=== PATIENT | male | born 1970 | race Caucasian/White ===

== ENCOUNTER 2017-03-19 13:07 | Emergency (ER) | payer MEDICAID ==
[~2017-03-19] VITALS: Ht 167.6 cm; Wt 70.2 kg
[2017-03-19 13:09] VITALS: BP 126/85
== END 2017-03-19 14:42 | disposition home or self-care (01) ==
LOC: ED 13:54
DX: S62.666A Nondisplaced fracture of distal phalanx of right little finger, initial encounter for closed fracture (principal); W22.8XXA Striking against or struck by other objects, initial encounter; Y93.89 Activity, other specified; Y99.8 Other external cause status; Y92.89 Other specified places as the place of occurrence of the external cause
CPT/HCPCS: 29130

== ENCOUNTER 2017-05-28 17:35 | Emergency (ER) | payer MEDICAID, OTHER ==
[~2017-05-28] VITALS: Ht 167.6 cm; Wt 70.5 kg
[2017-05-28 17:43] VITALS: BP 168/90
== END 2017-05-28 19:03 | disposition home or self-care (01) ==
LOC: ED 18:50
DX: M19.012 Primary osteoarthritis, left shoulder (principal); M24.412 Recurrent dislocation, left shoulder
CPT/HCPCS: 99284

== ENCOUNTER 2020-08-03 19:33 | Inpatient (IN) | payer OTHER ==
[~2020-08-03] VITALS: Ht 167.6 cm; Wt 70.1 kg
--- NOTE | 2020-08-03 19:54 | NUR ---
PT TAKEN TO ROOM AND PLACED ON 4 L O2. PTS FADI UPDATED ON PTS STATUS AT PTS REQUEST.
[2020-08-03] MEDS ORDERED: SODIUM CHLORIDE 0.9% 1,000ML IVBOLUS ONE ×2 (20:00→22:00)
[2020-08-03] MEDS ORDERED: SODIUM CHLORIDE FLUSH 10ML SYR IVF ONE (20:00)
[2020-08-03] MEDS ORDERED: DEXAMETHASONE 4 MG/ML, 1ML IVPush ONE (20:30)
[2020-08-03 20:58] LABS: MEAN CORPUSCULAR HEMOGLOBIN 26.1 pg (27.5-34.5); MEAN CORPUSCULAR HGB CONC 32.2 g/dL (33.2-36.2); MEAN PLATELET VOLUME 9.4 fL (7.4-10.4); PLATELET COUNT 327 x10^3/uL (130-400); RED CELL DISTRIBUTION WIDTH 16.7 % (9.4-14.8)
[2020-08-03 21:02] LABS: CHLORIDE 86 mmol/L (98-107)
[2020-08-03] MEDS ORDERED: DEXAMETHASONE 4 MG/ML, 1ML ONE (21:06)
[2020-08-03] MEDS ORDERED: CEFTRIAXONE PMX 1GM/50ML 50 ML ONE (21:22)
[2020-08-03 21:24] LABS: ALANINE AMINOTRANSFERASE 4509 U/L (12-78); ALKALINE PHOSPHATASE 81 U/L (45-117); TOTAL PROTEIN 6.8 g/dL (6.4-8.2)
--- NOTE | 2020-08-03 21:25 | NUR ---
#2 BAG WO NS GOING, 2 SETS BC HAVE BEEN DRAWN STARTING ABX NOW. B/P STABLE MAP GREATER 60. WILL CONTINUE MONITOR.
[2020-08-03 21:28] LABS: MD YES
[2020-08-03] MEDS ORDERED: SODIUM CHLORIDE 0.9%, 500ML IVBOLUS ONE (21:30)
[2020-08-03] MEDS ORDERED: CEFTRIAXONE PMX 1GM/50ML 50 ML IV ONE (21:30)
[2020-08-03 21:35] LABS: ANISOCYTOSIS 1+; BAND#(MANUAL) 3.83 x10^3/uL; BANDS%(MANUAL) 27 % (0-7); LYMPH#(MANUAL) 0.71 x10^3/uL (1-3.4); LYMPHS% (MANUAL) 5 % (22-44); METAMYELOCYTES# (MANUAL) 0.14 x10^3/uL (0-0); METAMYELOCYTES% (MANUAL) 1 % (0-1); MONOS#(MANUAL) 0.85 x10^3/uL (0.3-2.7); MONOS% (MANUAL) 6 % (2-9); MYELOCYTES# (MANUAL) 0.14 x10^3/uL (0-0); MYELOCYTES% (MANUAL) 1 % (0-0); REACTIVE LYMPHS # (MANUAL) 0.28 x10^3/uL (0-0); REACTIVE LYMPHS % (MANUAL) 2 % (0-0); SEG#(MANUAL) 8.24 x10^3/uL (1.8-6.8); SEGS% (MANUAL) 58 % (42-75)
[2020-08-03 21:36] LABS: POLYCHROMASIA 1+
[2020-08-03 21:37] LABS: <PLATELET ESTIMATE> ADEQUATE; LARGE PLATELETS 1+; TOXIC GRAN 1+
[2020-08-03] MEDS: DOXYCYCLINE 100 MG in DEXTROSE 5% 250 ML IV SCH (21:39)
--- NOTE | 2020-08-03 21:45 | NUR ---
2500ml NS bolus infused. 2nd abx started. Dr Mustafa at bedside.
[2020-08-03 21:52] LABS: ANION GAP 25 mmol/L (5-15); CALCIUM 7.1 mg/dL (8.5-10.1)
[2020-08-03 21:53] LABS: ALBUMIN 2.6 g/dL (3.4-5.0); CREATININE 4.81 mg/dL (0.7-1.3)
--- NOTE | 2020-08-03 22:13 | NUR ---
TOTAL INTAKE INCLUDING IV ABX 2800ML. NO UO YET. INFORMED MD. URINAL AT BEDSIDE PT THINKS HE CAN START GOING SOON. VS MAP 83
--- NOTE | 2020-08-03 22:59 | NUR ---
vss remain stable with map greater 65. o2 sats remain 93%3L.
[2020-08-04] MEDS ORDERED: morphine SULFATE 10 MG/ML, 1ML IVPush PRN
[2020-08-04] MEDS ORDERED: hydrALAzine 20 MG/ML, 1ML IVPush PRN
[2020-08-04] MEDS ORDERED: DOCUSATE 100 MG CAPSULE PO PRN
[2020-08-04] MEDS ORDERED: OXYcodone IR 5MG TABLET PO PRN
[2020-08-04] MEDS ORDERED: POLYETHYLENE GLYCOL 17 GM PACKET PO PRN
[2020-08-04] MEDS ORDERED: ONDANSETRON 2MG/ML, 2ML IVPush PRN
[2020-08-04] MEDS ORDERED: ONDANSETRON ODT 4 MG PO PRN
[2020-08-04] MEDS ORDERED: BISACODYL 10 MG SUPP PR PRN
[2020-08-04] MEDS ORDERED: PROMETHAZINE 25 MG/ML, 1ML IM PRN
--- NOTE | 2020-08-04 00:07 | NUR ---
PT VOIDED PER URINAL, 600ML CHERYL COLOR URINE. PT ON WAY UPSTAIRS. VS REMAIN STABLE, O2 STABLE.
--- NOTE | 2020-08-04 00:28 | NUR ---
TX WITH ALL BELONGINGS, PT STABLE FOR TRANSPORT.
[2020-08-04] MEDS: SODIUM CHLORIDE 0.9% 1,000 ML IV SCH ×2 (00:37→09:14)
[2020-08-04] MEDS: HEPARIN 5,000 UNITS/ML, 1ML SQ SCH ×2 (00:43→09:13)
[2020-08-04 00:45] VITALS: BP 130/72
[2020-08-04 01:59] VITALS: BP 129/79
[2020-08-04 07:28] VITALS: BP 121/76
[2020-08-04 07:40] LABS: MEAN CORPUSCULAR HEMOGLOBIN 26.3 pg (27.5-34.5); MEAN CORPUSCULAR HGB CONC 32.5 g/dL (33.2-36.2); MEAN PLATELET VOLUME 8.6 fL (7.4-10.4); PLATELET COUNT 200 x10^3/uL (130-400); RED BLOOD COUNT 2.76 x10^6/uL (4.38-5.82); RED CELL DISTRIBUTION WIDTH 16.6 % (9.4-14.8)
[2020-08-04 07:42] LABS: ALBUMIN 2.1 g/dL (3.4-5.0); ANION GAP 9 mmol/L (5-15); CALCIUM 6.4 mg/dL (8.5-10.1); CHLORIDE 103 mmol/L (98-107)
[2020-08-04 07:47] LABS: INTERNATIONAL NORMALIZED RATIO 1.1 (0.93-1.1); PROTHROMBIN TIME 11.7 Seconds (9.6-11.5)
[2020-08-04 07:59] LABS: ALANINE AMINOTRANSFERASE 3479 U/L (12-78); ALKALINE PHOSPHATASE 75 U/L (45-117); BILIRUBIN,TOTAL 1.4 mg/dL (0.2-1.0); CHOL/HDL RATIO 4.2; CHOLESTEROL, TOTAL 88 mg/dL (140-239); CREATININE 2.07 mg/dL (0.7-1.3); HDL CHOL % 24 % (26-37); HDL CHOLESTEROL (DIRECT) 21 mg/dL (40-60); LDL CHOLESTEROL,CALCULATED 46 mg/dL (54-169); LDL/HDL RATIO 2.2 (0.5-3.0); TOTAL PROTEIN 5.7 g/dL (6.4-8.2); TRIGLYCERIDES 104 mg/dL (50-200); VLDL CHOLESTEROL 21 mg/dL (0-25)
[2020-08-04 08:06] LABS: C-REACTIVE PROTEIN, QUANT > 19.00 mg/dL (0.02-0.49)
[2020-08-04 08:40] LABS: PROTIME 11.9 Seconds (9.6-11.5)
[2020-08-04 08:41] LABS: D-DIMER (DIC) 19.15 ug/mlFEU (0.00-0.52)
[2020-08-04 08:48] LABS: MD YES
[2020-08-04 08:51] LABS: BASOS#(MANUAL) 0.13 x10^3/uL (0-0.1); BASOS% (MANUAL) 1 % (0-1); METAMYELOCYTES# (MANUAL) 0.13 x10^3/uL (0-0); METAMYELOCYTES% (MANUAL) 1 % (0-1); MONOS% (MANUAL) 3 % (2-9); SEG#(MANUAL) 8.91 x10^3/uL (1.8-6.8); SEGS% (MANUAL) 67 % (42-75)
[2020-08-04 08:52] LABS: ANISOCYTOSIS 1+; BAND#(MANUAL) 2.13 x10^3/uL; BANDS%(MANUAL) 16 % (0-7); LYMPHS% (MANUAL) 12 % (22-44); POLYCHROMASIA 1+
[2020-08-04 08:53] LABS: <PLATELET ESTIMATE> ADEQUATE; LARGE PLATELETS 1+
[2020-08-04] MEDS: DEXAMETHASONE 4 MG/ML, 1ML IVPush SCH ×2 (09:13)
[2020-08-04] MEDS ORDERED: HEPARIN 5,000 UNITS/ML, 1ML IV ONE (10:00)
[2020-08-04] MEDS ORDERED: HEPARIN 25,000 UNITS/250ML PMX 250 ML IV PRN ×2 (10:00→17:30)
[2020-08-04] MEDS ORDERED: HEPARIN 5,000 UNITS/ML, 1ML IV PRN ×2 (10:00→17:30)
[2020-08-04] MEDS: ZINC SULFATE 220 MG CAPSULE PO SCH (11:14)
[2020-08-04] MEDS: CHOLECALCIFEROL 5,000u TAB PO SCH (11:14)
[2020-08-04] MEDS: DOXYCYCLINE 100 MG in DEXTROSE 5% 250 ML IV SCH ×2 (11:48→23:39)
[2020-08-04] MEDS ORDERED: VANCOMYCIN PER PHARMACY MC PRN (12:00)
[2020-08-04 12:43] VITALS: BP 126/82
[2020-08-04] MEDS ORDERED: VANCOMYCIN 1,800 MG in SODIUM CHLORIDE 0.9% 250 ML IV ONE (13:00)
[2020-08-04 13:15] LABS: % IRON SATURATION 8 % (20-55); IRON LEVEL 25 mcg/dL (65-175); TOTAL IRON BINDING CAPACITY 311 mcg/dL (250-450)
[2020-08-04] MEDS ORDERED: PHARMACOKINETIC MONITORING MC PRN (14:00)
[2020-08-04] MEDS: ASCORBIC ACID 500 MG TABLET PO SCH (16:43)
[2020-08-04] MEDS ORDERED: HEPARIN 5,000 UNITS/ML, 1ML SQ SCH (17:00)
[2020-08-04 20:20] VITALS: BP 135/89
[2020-08-04] MEDS ORDERED: VANCOMYCIN 1,400 MG in SODIUM CHLORIDE 0.9% 250 ML IV ONE (21:00)
[2020-08-04] MEDS ORDERED: CEFTRIAXONE PMX 1GM/50ML 50 ML IV SCH (21:00)
[2020-08-05] VITALS (7 sets, daily range): BP systolic 108–143; BP diastolic 71–85
[2020-08-05 02:35] LABS: MICROSCOPIC NOT IND
[2020-08-05] MEDS: SODIUM CHLORIDE 0.9% 1,000 ML IV SCH ×2 (03:07→13:00)
[2020-08-05 05:03] LABS: ALBUMIN 2.2 g/dL (3.4-5.0); ANION GAP 8 mmol/L (5-15); CALCIUM 7.4 mg/dL (8.5-10.1); CHLORIDE 108 mmol/L (98-107); CREATININE 0.86 mg/dL (0.7-1.3)
[2020-08-05 05:29] LABS: ALANINE AMINOTRANSFERASE 2190 U/L (12-78); ALKALINE PHOSPHATASE 99 U/L (45-117); VANCOMYCIN,RANDOM 19.4 mcg/mL
[2020-08-05] MEDS: PANTOPRAZOLE 80 MG in SODIUM CHLORIDE 0.9% 100 ML IV SCH ×2 (08:18→18:20)
[2020-08-05] MEDS ORDERED: VANCOMYCIN 1,400 MG in SODIUM CHLORIDE 0.9% 250 ML IV SCH (09:00)
[2020-08-05] MEDS: CHOLECALCIFEROL 5,000u TAB PO SCH (11:33)
[2020-08-05] MEDS: DEXAMETHASONE 4 MG/ML, 1ML IVPush SCH (11:34)
[2020-08-05] MEDS: ZINC SULFATE 220 MG CAPSULE PO SCH (11:34)
[2020-08-05] MEDS: ASCORBIC ACID 500 MG TABLET PO SCH ×2 (11:34→17:42)
[2020-08-05] MEDS: IRON SUCROSE COMPLEX 100MG/5ML IV SCH (11:34)
[2020-08-05 11:46] LABS: MEAN CORPUSCULAR HGB CONC 32.2 g/dL (33.2-36.2); MEAN PLATELET VOLUME 8.6 fL (7.4-10.4); PLATELET COUNT 175 x10^3/uL (130-400); RED BLOOD COUNT 3.14 x10^6/uL (4.38-5.82); RED CELL DISTRIBUTION WIDTH 16.9 % (9.4-14.8)
[2020-08-05 13:09] LABS: MD YES
[2020-08-05 13:12] LABS: ANISOCYTOSIS 1+; BAND#(MANUAL) 2.59 x10^3/uL; BANDS%(MANUAL) 9 % (0-7); LYMPH#(MANUAL) 1.44 x10^3/uL (1-3.4); LYMPHS% (MANUAL) 5 % (22-44); METAMYELOCYTES# (MANUAL) 2.88 x10^3/uL (0-0); METAMYELOCYTES% (MANUAL) 10 % (0-1); MONOS#(MANUAL) 1.15 x10^3/uL (0.3-2.7); MONOS% (MANUAL) 4 % (2-9); MYELOCYTES# (MANUAL) 1.44 x10^3/uL (0-0); MYELOCYTES% (MANUAL) 5 % (0-0); POLYCHROMASIA 1+; SEGS% (MANUAL) 67 % (42-75)
[2020-08-05 13:18] LABS: PMNS WITH VACUOLES 1+; TOXIC GRAN 1+
[2020-08-05 13:19] LABS: <PLATELET ESTIMATE> ADEQUATE; LARGE PLATELETS 1+
[2020-08-05] MEDS ORDERED: PIPERACILLIN/TAZO/PMX 3.375GM 50 ML IV SCH (13:30)
[2020-08-05] MEDS ORDERED: CEFTRIAXONE 1,000 MG IM SCH ×2 (14:30→14:52)
[2020-08-05] MEDS ORDERED: OMNIPAQUE 350 MG/ML, 100ML BOTTLE ONE (16:10)
[2020-08-05] MEDS: CEFAZOLIN 2,000 MG in SODIUM CHLORIDE 0.9% 50 ML IV SCH (17:42)
[2020-08-05 18:02] LABS: RAPID INFLUENZA A Negative (Negative); RAPID INFLUENZA B Negative (Negative)
[2020-08-06 01:29] VITALS: BP 122/74
[2020-08-06] MEDS: CEFAZOLIN 2,000 MG in SODIUM CHLORIDE 0.9% 50 ML IV SCH ×3 (01:53→17:56)
[2020-08-06] MEDS: PANTOPRAZOLE 80 MG in SODIUM CHLORIDE 0.9% 100 ML IV SCH ×3 (02:16→23:03)
[2020-08-06 05:42] LABS: MEAN CORPUSCULAR HEMOGLOBIN 26.5 pg (27.5-34.5); MEAN CORPUSCULAR HGB CONC 32.3 g/dL (33.2-36.2); MEAN PLATELET VOLUME 8.7 fL (7.4-10.4); PLATELET COUNT 162 x10^3/uL (130-400); RED BLOOD COUNT 2.95 x10^6/uL (4.38-5.82); RED CELL DISTRIBUTION WIDTH 17.1 % (9.4-14.8)
[2020-08-06 05:55] LABS: ANION GAP 5 mmol/L (5-15); CALCIUM 7.5 mg/dL (8.5-10.1); CHLORIDE 108 mmol/L (98-107); CREATININE 0.77 mg/dL (0.7-1.3)
[2020-08-06 06:02] LABS: ALANINE AMINOTRANSFERASE 1258 U/L (12-78); ALKALINE PHOSPHATASE 99 U/L (45-117); BILIRUBIN,TOTAL 0.9 mg/dL (0.2-1.0); CREATINE KINASE, TOTAL 77 U/L (39-308); TOTAL PROTEIN 5.4 g/dL (6.4-8.2)
[2020-08-06 06:54] LABS: BANDS%(MANUAL) 10 % (0-7); LYMPH#(MANUAL) 0.68 x10^3/uL (1-3.4); LYMPHS% (MANUAL) 2 % (22-44); MD YES; MONOS% (MANUAL) 5 % (2-9); MYELOCYTES# (MANUAL) 1.36 x10^3/uL (0-0); MYELOCYTES% (MANUAL) 4 % (0-0); PROGRANULOCYTES# (MANUAL) 0.34 x10^3/uL (0-0); PROGRANULOCYTES% (MANUAL) 1 % (0-0); SEG#(MANUAL) 26.52 x10^3/uL (1.8-6.8); SEGS% (MANUAL) 78 % (42-75); TOXIC GRAN 1+
[2020-08-06 06:55] LABS: <PLATELET ESTIMATE> ADEQUATE; LARGE PLATELETS 1+
[2020-08-06 06:56] LABS: ANISOCYTOSIS 1+
[2020-08-06 07:14] VITALS: BP 115/74
[2020-08-06] MEDS: ASCORBIC ACID 500 MG TABLET PO SCH ×2 (10:14→17:56)
[2020-08-06] MEDS: IRON SUCROSE COMPLEX 100MG/5ML IV SCH (10:14)
[2020-08-06] MEDS: CHOLECALCIFEROL 5,000u TAB PO SCH (10:15)
[2020-08-06] MEDS: ZINC SULFATE 220 MG CAPSULE PO SCH (10:15)
[2020-08-06 12:06] VITALS: BP 127/76
[2020-08-06] MEDS ORDERED: CEFAZOLIN 2,000 MG in SODIUM CHLORIDE 0.9% 50 ML IV SCH (15:00)
[2020-08-06] MEDS: PANTOPRAZOLE 20MG TABLET PO SCH (17:56)
[2020-08-06 19:06] VITALS: BP 138/87
[2020-08-07 01:28] VITALS: BP 147/83
[2020-08-07] MEDS: CEFAZOLIN 2,000 MG in SODIUM CHLORIDE 0.9% 50 ML IV SCH ×3 (01:43→17:33)
[2020-08-07 06:16] LABS: MEAN CORPUSCULAR HEMOGLOBIN 26.7 pg (27.5-34.5); MEAN CORPUSCULAR HGB CONC 32.1 g/dL (33.2-36.2); MEAN PLATELET VOLUME 8.4 fL (7.4-10.4); PLATELET COUNT 170 x10^3/uL (130-400); RED BLOOD COUNT 3.28 x10^6/uL (4.38-5.82); RED CELL DISTRIBUTION WIDTH 17.1 % (9.4-14.8)
[2020-08-07 06:17] LABS: CHLORIDE 104 mmol/L (98-107)
[2020-08-07 06:20] LABS: INTERNATIONAL NORMALIZED RATIO 1.04 (0.93-1.1)
[2020-08-07 06:37] LABS: ALANINE AMINOTRANSFERASE 719 U/L (12-78); ALBUMIN 2.1 g/dL (3.4-5.0); ALKALINE PHOSPHATASE 119 U/L (45-117); ANION GAP 7 mmol/L (5-15); BILIRUBIN,TOTAL 0.9 mg/dL (0.2-1.0); CALCIUM 7.8 mg/dL (8.5-10.1); CREATININE 0.86 mg/dL (0.7-1.3)
[2020-08-07 06:45] LABS: MD YES
[2020-08-07 06:48] LABS: BANDS%(MANUAL) 13 % (0-7); LYMPH#(MANUAL) 1.51 x10^3/uL (1-3.4); LYMPHS% (MANUAL) 4 % (22-44); METAMYELOCYTES# (MANUAL) 0.75 x10^3/uL (0-0); METAMYELOCYTES% (MANUAL) 2 % (0-1); MONOS#(MANUAL) 0.75 x10^3/uL (0.3-2.7); MONOS% (MANUAL) 2 % (2-9); MYELOCYTES# (MANUAL) 0.75 x10^3/uL (0-0); MYELOCYTES% (MANUAL) 2 % (0-0); SEG#(MANUAL) 29.03 x10^3/uL (1.8-6.8); SEGS% (MANUAL) 77 % (42-75)
[2020-08-07 06:49] LABS: ANISOCYTOSIS 1+
[2020-08-07 06:50] LABS: POLYCHROMASIA 1+; TOXIC GRAN 1+
[2020-08-07 06:51] LABS: <PLATELET ESTIMATE> ADEQUATE; LARGE PLATELETS 1+; PMNS WITH VACUOLES 1+
[2020-08-07] MEDS: PANTOPRAZOLE 20MG TABLET PO SCH ×2 (07:00→16:00)
[2020-08-07 07:57] VITALS: BP 120/80
[2020-08-07] MEDS: PANTOPRAZOLE 80 MG in SODIUM CHLORIDE 0.9% 100 ML IV SCH ×2 (09:19→20:02)
[2020-08-07] MEDS: ASCORBIC ACID 500 MG TABLET PO SCH ×2 (09:19→17:33)
[2020-08-07] MEDS: IRON SUCROSE COMPLEX 100MG/5ML IV SCH (09:19)
[2020-08-07] MEDS: ZINC SULFATE 220 MG CAPSULE PO SCH (09:19)
[2020-08-07] MEDS: CHOLECALCIFEROL 5,000u TAB PO SCH (09:19)
[2020-08-07] MEDS: MICAFUNGIN 100 MG in SODIUM CHLORIDE 0.9% 100 ML IV SCH (12:06)
[2020-08-07 13:19] VITALS: BP 122/79
[2020-08-07 19:55] VITALS: BP 118/81
[2020-08-08 02:03] VITALS: BP 101/69
[2020-08-08] MEDS: CEFAZOLIN 2,000 MG in SODIUM CHLORIDE 0.9% 50 ML IV SCH (02:11)
[2020-08-08] MEDS: PANTOPRAZOLE 20MG TABLET PO SCH ×2 (06:00→16:00)
[2020-08-08] MEDS: PANTOPRAZOLE 80 MG in SODIUM CHLORIDE 0.9% 100 ML IV SCH ×2 (06:04→13:00)
[2020-08-08 06:16] VITALS: BP 108/76
[2020-08-08] MEDS: ZINC SULFATE 220 MG CAPSULE PO SCH (08:50)
[2020-08-08] MEDS: CHOLECALCIFEROL 5,000u TAB PO SCH (08:50)
[2020-08-08] MEDS: IRON SUCROSE COMPLEX 100MG/5ML IV SCH (08:50)
[2020-08-08] MEDS: ASCORBIC ACID 500 MG TABLET PO SCH ×2 (08:50→18:25)
[2020-08-08] MEDS: CEFAZOLIN PMX 2GM/50ML 50 ML IVPB SCH ×2 (08:52→18:25)
[2020-08-08] MEDS: MICAFUNGIN 100 MG in SODIUM CHLORIDE 0.9% 100 ML IV SCH (10:27)
[2020-08-08 11:35] VITALS: BP 110/62
[2020-08-08 11:36] LABS: MD YES; MEAN CORPUSCULAR HEMOGLOBIN 26.4 pg (27.5-34.5); MEAN CORPUSCULAR HGB CONC 31.5 g/dL (33.2-36.2); MEAN PLATELET VOLUME 9.2 fL (7.4-10.4); PLATELET COUNT 177 x10^3/uL (130-400); RED BLOOD COUNT 3.25 x10^6/uL (4.38-5.82); RED CELL DISTRIBUTION WIDTH 17.8 % (9.4-14.8)
[2020-08-08 11:45] LABS: ALANINE AMINOTRANSFERASE 288 U/L (12-78); ALBUMIN 1.7 g/dL (3.4-5.0); ANION GAP 6 mmol/L (5-15); CALCIUM 7.1 mg/dL (8.5-10.1); CHLORIDE 107 mmol/L (98-107); CREATININE 0.69 mg/dL (0.7-1.3)
[2020-08-08 11:47] LABS: ALKALINE PHOSPHATASE 129 U/L (45-117); BILIRUBIN,TOTAL 0.8 mg/dL (0.2-1.0); TOTAL PROTEIN 5.5 g/dL (6.4-8.2)
[2020-08-08 12:25] LABS: ANISOCYTOSIS 1+; BAND#(MANUAL) 1.33 x10^3/uL; BANDS%(MANUAL) 4 % (0-7); EOS#(MANUAL) 0.33 x10^3/uL (0.0-0.4); EOS% (MANUAL) 1 % (1-7); LYMPH#(MANUAL) 2.33 x10^3/uL (1-3.4); LYMPHS% (MANUAL) 7 % (22-44); METAMYELOCYTES# (MANUAL) 1.33 x10^3/uL (0-0); METAMYELOCYTES% (MANUAL) 4 % (0-1); MONOS#(MANUAL) 1.67 x10^3/uL (0.3-2.7); MONOS% (MANUAL) 5 % (2-9); POLYCHROMASIA 1+; REACTIVE LYMPHS # (MANUAL) 0.33 x10^3/uL (0-0); REACTIVE LYMPHS % (MANUAL) 1 % (0-0); SEG#(MANUAL) 25.97 x10^3/uL (1.8-6.8); SEGS% (MANUAL) 78 % (42-75); TOXIC GRAN 1+
[2020-08-08 12:26] LABS: CRENATED 1+
[2020-08-08 12:27] LABS: <PLATELET ESTIMATE> ADEQUATE; LARGE PLATELETS 1+; SCHISTOCYTES 1+
[2020-08-08 18:58] VITALS: BP 109/69
[2020-08-08] MEDS: HEPARIN 25,000 UNITS/250ML PMX 250 ML IV PRN (20:50)
[2020-08-09 01:40] VITALS: BP 104/70
[2020-08-09] MEDS: CEFAZOLIN PMX 2GM/50ML 50 ML IVPB SCH ×3 (02:17→17:34)
[2020-08-09 03:41] LABS: MEAN CORPUSCULAR HGB CONC 31.3 g/dL (33.2-36.2); MEAN PLATELET VOLUME 9.5 fL (7.4-10.4); PLATELET COUNT 213 x10^3/uL (130-400); RED BLOOD COUNT 3.43 x10^6/uL (4.38-5.82)
[2020-08-09 03:53] LABS: ALBUMIN 1.8 g/dL (3.4-5.0); ANION GAP 8 mmol/L (5-15); CALCIUM 7.9 mg/dL (8.5-10.1); CHLORIDE 101 mmol/L (98-107)
[2020-08-09 03:57] LABS: ALANINE AMINOTRANSFERASE 224 U/L (12-78); ALKALINE PHOSPHATASE 142 U/L (45-117); BILIRUBIN,TOTAL 0.8 mg/dL (0.2-1.0); CREATININE 0.75 mg/dL (0.7-1.3); TOTAL PROTEIN 6.4 g/dL (6.4-8.2)
[2020-08-09 04:16] LABS: MD YES
[2020-08-09 04:18] LABS: ANISOCYTOSIS 1+; BAND#(MANUAL) 1.04 x10^3/uL; BANDS%(MANUAL) 3 % (0-7); BASOS#(MANUAL) 0.35 x10^3/uL (0-0.1); BASOS% (MANUAL) 1 % (0-1); EOS#(MANUAL) 0.69 x10^3/uL (0.0-0.4); EOS% (MANUAL) 2 % (1-7); LYMPH#(MANUAL) 1.73 x10^3/uL (1-3.4); LYMPHS% (MANUAL) 5 % (22-44); METAMYELOCYTES# (MANUAL) 0.35 x10^3/uL (0-0); METAMYELOCYTES% (MANUAL) 1 % (0-1); MONOS#(MANUAL) 1.38 x10^3/uL (0.3-2.7); MONOS% (MANUAL) 4 % (2-9); POLYCHROMASIA 1+; SEG#(MANUAL) 28.98 x10^3/uL (1.8-6.8); SEGS% (MANUAL) 84 % (42-75)
[2020-08-09 04:19] LABS: HYPOCHROMIA 1+; OVALOCYTES 1+; SCHISTOCYTES 1+; TOXIC GRAN 1+
[2020-08-09 04:20] LABS: <PLATELET ESTIMATE> ADEQUATE; LARGE PLATELETS 1+
[2020-08-09] MEDS: PANTOPRAZOLE 20MG TABLET PO SCH ×2 (05:57→15:41)
[2020-08-09 06:19] VITALS: BP 104/70
[2020-08-09] MEDS: ASCORBIC ACID 500 MG TABLET PO SCH ×2 (09:11→15:41)
[2020-08-09] MEDS: IRON SUCROSE COMPLEX 100MG/5ML IV SCH (09:11)
[2020-08-09] MEDS: CHOLECALCIFEROL 5,000u TAB PO SCH (09:12)
[2020-08-09] MEDS: ZINC SULFATE 220 MG CAPSULE PO SCH (09:12)
[2020-08-09] MEDS: MICAFUNGIN 100 MG in SODIUM CHLORIDE 0.9% 100 ML IV SCH (10:47)
[2020-08-09] MEDS: SODIUM CHLORIDE 0.9% 1,000 ML IV SCH ×2 (12:33→22:49)
[2020-08-09 14:24] VITALS: BP 109/61
[2020-08-09 15:00] LABS: OCCULT BLOOD POSITIVE (NEGATIVE)
[2020-08-09 17:24] VITALS: BP 107/70
[2020-08-09 20:25] VITALS: BP 106/70
[2020-08-10] MEDS: HEPARIN 25,000 UNITS/250ML PMX 250 ML IV PRN ×2 (00:11→21:15)
[2020-08-10 00:17] VITALS: BP 109/69
[2020-08-10] MEDS: CEFAZOLIN PMX 2GM/50ML 50 ML IVPB SCH ×3 (02:11→17:21)
[2020-08-10 04:05] LABS: ALBUMIN 1.7 g/dL (3.4-5.0); ANION GAP 5 mmol/L (5-15); CALCIUM 7.7 mg/dL (8.5-10.1); CHLORIDE 106 mmol/L (98-107); MEAN CORPUSCULAR HEMOGLOBIN 26.4 pg (27.5-34.5); MEAN CORPUSCULAR HGB CONC 31.7 g/dL (33.2-36.2); MEAN PLATELET VOLUME 9.8 fL (7.4-10.4); PLATELET COUNT 258 x10^3/uL (130-400); RED BLOOD COUNT 3.03 x10^6/uL (4.38-5.82); RED CELL DISTRIBUTION WIDTH 18.5 % (9.4-14.8)
[2020-08-10 04:09] LABS: ALANINE AMINOTRANSFERASE 117 U/L (12-78); ALKALINE PHOSPHATASE 131 U/L (45-117); BILIRUBIN,TOTAL 0.6 mg/dL (0.2-1.0); CREATININE 0.69 mg/dL (0.7-1.3); TOTAL PROTEIN 6.1 g/dL (6.4-8.2)
[2020-08-10 04:49] LABS: MD YES
[2020-08-10 04:51] LABS: ANISOCYTOSIS 1+; BAND#(MANUAL) 0.49 x10^3/uL; BANDS%(MANUAL) 2 % (0-7); EOS#(MANUAL) 0.25 x10^3/uL (0.0-0.4); EOS% (MANUAL) 1 % (1-7); LYMPH#(MANUAL) 2.46 x10^3/uL (1-3.4); LYMPHS% (MANUAL) 10 % (22-44); MONOS#(MANUAL) 1.72 x10^3/uL (0.3-2.7); MONOS% (MANUAL) 7 % (2-9); MYELOCYTES# (MANUAL) 0.25 x10^3/uL (0-0); MYELOCYTES% (MANUAL) 1 % (0-0); OVALOCYTES 1+; POLYCHROMASIA 1+; SEG#(MANUAL) 19.43 x10^3/uL (1.8-6.8); SEGS% (MANUAL) 79 % (42-75)
[2020-08-10 04:52] LABS: <PLATELET ESTIMATE> ADEQUATE; LARGE PLATELETS 1+; TOXIC GRAN 1+
[2020-08-10] MEDS: PANTOPRAZOLE 20MG TABLET PO SCH ×2 (05:14→17:22)
[2020-08-10 07:18] VITALS: BP 107/71
[2020-08-10] MEDS: ASCORBIC ACID 500 MG TABLET PO SCH ×2 (08:46→19:56)
[2020-08-10] MEDS: ZINC SULFATE 220 MG CAPSULE PO SCH (08:46)
[2020-08-10] MEDS: CHOLECALCIFEROL 5,000u TAB PO SCH (08:46)
[2020-08-10] MEDS: SODIUM CHLORIDE 0.9% 1,000 ML IV SCH (08:46)
[2020-08-10] MEDS: IRON SUCROSE COMPLEX 100MG/5ML IV SCH (08:47)
[2020-08-10] MEDS: MICAFUNGIN 100 MG in SODIUM CHLORIDE 0.9% 100 ML IV SCH (11:20)
[2020-08-10 14:20] VITALS: BP 108/69
[2020-08-10 19:00] VITALS: BP 108/64
[2020-08-11 00:03] VITALS: BP 112/69
[2020-08-11] MEDS: CEFAZOLIN PMX 2GM/50ML 50 ML IVPB SCH ×3 (02:01→17:33)
[2020-08-11 05:04] LABS: MEAN CORPUSCULAR HEMOGLOBIN 26.5 pg (27.5-34.5); MEAN CORPUSCULAR HGB CONC 31.6 g/dL (33.2-36.2); MEAN PLATELET VOLUME 9.7 fL (7.4-10.4); PLATELET COUNT 337 x10^3/uL (130-400); RED BLOOD COUNT 3.14 x10^6/uL (4.38-5.82); RED CELL DISTRIBUTION WIDTH 19.4 % (9.4-14.8)
[2020-08-11 05:16] LABS: ALBUMIN 1.7 g/dL (3.4-5.0); ANION GAP 6 mmol/L (5-15); CHLORIDE 107 mmol/L (98-107)
[2020-08-11 05:20] LABS: ALANINE AMINOTRANSFERASE 119 U/L (12-78); ALKALINE PHOSPHATASE 198 U/L (45-117); BILIRUBIN,TOTAL 0.8 mg/dL (0.2-1.0); CREATININE 0.71 mg/dL (0.7-1.3); TOTAL PROTEIN 6.8 g/dL (6.4-8.2)
[2020-08-11] MEDS: PANTOPRAZOLE 20MG TABLET PO SCH ×2 (05:38→16:56)
[2020-08-11 06:07] LABS: MD YES
[2020-08-11 06:09] LABS: <PLATELET ESTIMATE> ADEQUATE; <PLT MORPHOLOGY> NORMAL PLT MORPH; ANISOCYTOSIS 1+; BAND#(MANUAL) 0.17 x10^3/uL; BANDS%(MANUAL) 1 % (0-7); EOS#(MANUAL) 0.34 x10^3/uL (0.0-0.4); EOS% (MANUAL) 2 % (1-7); LYMPH#(MANUAL) 2.54 x10^3/uL (1-3.4); LYMPHS% (MANUAL) 15 % (22-44); METAMYELOCYTES# (MANUAL) 0.17 x10^3/uL (0-0); METAMYELOCYTES% (MANUAL) 1 % (0-1); MONOS#(MANUAL) 0.34 x10^3/uL (0.3-2.7); MONOS% (MANUAL) 2 % (2-9); OVALOCYTES 1+; POLYCHROMASIA 1+; SEG#(MANUAL) 13.35 x10^3/uL (1.8-6.8); SEGS% (MANUAL) 79 % (42-75); TOXIC GRAN 1+
[2020-08-11 06:10] LABS: HYPOCHROMIA 1+
[2020-08-11 07:40] VITALS: BP 109/78
[2020-08-11] MEDS: ASCORBIC ACID 500 MG TABLET PO SCH ×2 (08:07→16:56)
[2020-08-11] MEDS: ZINC SULFATE 220 MG CAPSULE PO SCH (08:07)
[2020-08-11] MEDS: CHOLECALCIFEROL 5,000u TAB PO SCH (08:07)
[2020-08-11] MEDS: IRON SUCROSE COMPLEX 100MG/5ML IV SCH (08:12)
[2020-08-11] MEDS: ENOXAPARIN 60 MG/0.6 ML SQ SCH ×2 (11:19→22:31)
[2020-08-11] MEDS: MICAFUNGIN 100 MG in SODIUM CHLORIDE 0.9% 100 ML IV SCH (11:20)
[2020-08-11 14:00] VITALS: BP 118/86
[2020-08-11 20:11] VITALS: BP 111/75
[2020-08-12 00:47] VITALS: BP 100/75
[2020-08-12] MEDS: CEFAZOLIN PMX 2GM/50ML 50 ML IVPB SCH ×3 (02:16→17:30)
[2020-08-12 05:15] LABS: ALBUMIN 1.9 g/dL (3.4-5.0); ANION GAP 4 mmol/L (5-15); CHLORIDE 107 mmol/L (98-107)
[2020-08-12 05:22] LABS: ALANINE AMINOTRANSFERASE 94 U/L (12-78); ALKALINE PHOSPHATASE 184 U/L (45-117); BILIRUBIN,TOTAL 0.5 mg/dL (0.2-1.0); CREATININE 0.75 mg/dL (0.7-1.3)
[2020-08-12 05:59] LABS: MEAN CORPUSCULAR HEMOGLOBIN 27.2 pg (27.5-34.5); MEAN CORPUSCULAR HGB CONC 32.1 g/dL (33.2-36.2); MEAN PLATELET VOLUME 9.4 fL (7.4-10.4); PLATELET COUNT 440 x10^3/uL (130-400); RED BLOOD COUNT 3.05 x10^6/uL (4.38-5.82); RED CELL DISTRIBUTION WIDTH 19.8 % (9.4-14.8)
[2020-08-12 06:34] LABS: MD YES
[2020-08-12 06:35] LABS: ANISOCYTOSIS 1+; BASOS#(MANUAL) 0.17 x10^3/uL (0-0.1); BASOS% (MANUAL) 1 % (0-1); EOS#(MANUAL) 0.17 x10^3/uL (0.0-0.4); EOS% (MANUAL) 1 % (1-7); LYMPH#(MANUAL) 1.85 x10^3/uL (1-3.4); LYMPHS% (MANUAL) 11 % (22-44); METAMYELOCYTES# (MANUAL) 0.17 x10^3/uL (0-0); METAMYELOCYTES% (MANUAL) 1 % (0-1); MONOS% (MANUAL) 3 % (2-9); MYELOCYTES# (MANUAL) 0.17 x10^3/uL (0-0); MYELOCYTES% (MANUAL) 1 % (0-0); SEG#(MANUAL) 13.78 x10^3/uL (1.8-6.8); SEGS% (MANUAL) 82 % (42-75)
[2020-08-12 06:36] LABS: OVALOCYTES 1+; POLYCHROMASIA 1+
[2020-08-12 06:40] LABS: <PLATELET ESTIMATE> INCREASED
[2020-08-12 06:41] LABS: LARGE PLATELETS 1+
[2020-08-12 07:50] VITALS: BP 103/68
[2020-08-12] MEDS: CHOLECALCIFEROL 5,000u TAB PO SCH (09:41)
[2020-08-12] MEDS: IRON SUCROSE COMPLEX 100MG/5ML IV SCH (09:41)
[2020-08-12] MEDS: ASCORBIC ACID 500 MG TABLET PO SCH ×2 (09:41→16:28)
[2020-08-12] MEDS: ZINC SULFATE 220 MG CAPSULE PO SCH (09:41)
[2020-08-12] MEDS: PANTOPRAZOLE 20MG TABLET PO SCH ×2 (09:47→16:28)
[2020-08-12] MEDS: MICAFUNGIN 100 MG in SODIUM CHLORIDE 0.9% 100 ML IV SCH (11:38)
[2020-08-12] MEDS: ENOXAPARIN 60 MG/0.6 ML SQ SCH ×2 (11:39→23:51)
[2020-08-12 12:54] VITALS: BP 105/70
[2020-08-12 19:59] VITALS: BP 137/76
[2020-08-13] MEDS: CEFAZOLIN PMX 2GM/50ML 50 ML IVPB SCH ×3 (02:02→17:43)
[2020-08-13 02:06] VITALS: BP 108/75
[2020-08-13] MEDS: PANTOPRAZOLE 20MG TABLET PO SCH ×2 (05:29→16:24)
[2020-08-13 05:58] LABS: HCT (SEDRATE) 26.6 % (39.2-51.8)
[2020-08-13 06:08] LABS: MEAN CORPUSCULAR HEMOGLOBIN 26.9 pg (27.5-34.5); MEAN CORPUSCULAR HGB CONC 31.7 g/dL (33.2-36.2); MEAN PLATELET VOLUME 9.1 fL (7.4-10.4); PLATELET COUNT 510 x10^3/uL (130-400); RED BLOOD COUNT 3.14 x10^6/uL (4.38-5.82); RED CELL DISTRIBUTION WIDTH 20.5 % (9.4-14.8)
[2020-08-13 06:13] LABS: ANION GAP 5 mmol/L (5-15); CALCIUM 8.1 mg/dL (8.5-10.1); CHLORIDE 108 mmol/L (98-107)
[2020-08-13 06:21] LABS: ALANINE AMINOTRANSFERASE 69 U/L (12-78); ALKALINE PHOSPHATASE 160 U/L (45-117); BILIRUBIN,TOTAL 0.6 mg/dL (0.2-1.0); C-REACTIVE PROTEIN, QUANT 4.93 mg/dL (0.02-0.49); CREATININE 0.77 mg/dL (0.7-1.3); TOTAL PROTEIN 7.4 g/dL (6.4-8.2)
[2020-08-13 06:54] LABS: MD YES
[2020-08-13 06:55] LABS: EOS#(MANUAL) 0.47 x10^3/uL (0.0-0.4); EOS% (MANUAL) 3 % (1-7); LYMPH#(MANUAL) 2.65 x10^3/uL (1-3.4); LYMPHS% (MANUAL) 17 % (22-44); METAMYELOCYTES# (MANUAL) 0.16 x10^3/uL (0-0); METAMYELOCYTES% (MANUAL) 1 % (0-1); MONOS#(MANUAL) 0.94 x10^3/uL (0.3-2.7); MONOS% (MANUAL) 6 % (2-9); SEG#(MANUAL) 11.39 x10^3/uL (1.8-6.8); SEGS% (MANUAL) 73 % (42-75)
[2020-08-13 06:56] LABS: <PLATELET ESTIMATE> INCREASED; ANISOCYTOSIS 1+; LARGE PLATELETS 1+; OVALOCYTES 1+; POLYCHROMASIA 1+
[2020-08-13 07:30] VITALS: BP 98/65
[2020-08-13] MEDS: IRON SUCROSE COMPLEX 100MG/5ML IV SCH (10:17)
[2020-08-13] MEDS: ZINC SULFATE 220 MG CAPSULE PO SCH (10:17)
[2020-08-13] MEDS: ASCORBIC ACID 500 MG TABLET PO SCH ×2 (10:17→16:24)
[2020-08-13] MEDS: CHOLECALCIFEROL 5,000u TAB PO SCH (10:17)
[2020-08-13] MEDS: ENOXAPARIN 60 MG/0.6 ML SQ SCH (10:18)
[2020-08-13] MEDS: MICAFUNGIN 100 MG in SODIUM CHLORIDE 0.9% 100 ML IV SCH (10:51)
[2020-08-13] MEDS ORDERED: PROPOFOL 10 MG/ML, 20ML ONE (12:08)
[2020-08-13 14:15] VITALS: BP 113/69
[2020-08-13] MEDS ORDERED: OMNIPAQUE 350 MG/ML, 75ML BOTTLE ONE (15:02)
[2020-08-13] MEDS ORDERED: MAGNESIUM HYDROXIDE 8%, 30ML UDC PO PRN (17:00)
[2020-08-13] MEDS: SENNA/DOCUSATE TABLET PO SCH (17:43)
[2020-08-13 23:43] VITALS: BP 100/67
[2020-08-14] MEDS ORDERED: DIPHENHYDRAMINE 25 MG CAPSULE PO ONE (00:30)
[2020-08-14] MEDS: CEFAZOLIN PMX 2GM/50ML 50 ML IVPB SCH ×3 (02:14→17:24)
[2020-08-14 02:35] VITALS: BP 106/70
[2020-08-14] MEDS: PANTOPRAZOLE 20MG TABLET PO SCH ×2 (06:21→16:22)
[2020-08-14 06:39] LABS: BASOPHILS % (AUTO) 1 % (0-1); EOSINOPHILS % (AUTO) 3 % (1-7); LYMPHOCYTES % (AUTO) 10 % (22-44); MEAN CORPUSCULAR HEMOGLOBIN 27.8 pg (27.5-34.5); MEAN CORPUSCULAR HGB CONC 32.2 g/dL (33.2-36.2); MEAN PLATELET VOLUME 8.4 fL (7.4-10.4); MONOCYTES % (AUTO) 10 % (2-9); NEUTROPHILS % (AUTO) 76 % (42-75); PLATELET COUNT 522 x10^3/uL (130-400); RED BLOOD COUNT 2.92 x10^6/uL (4.38-5.82); RED CELL DISTRIBUTION WIDTH 21.3 % (9.4-14.8)
[2020-08-14 06:41] LABS: MD NO
[2020-08-14 06:45] LABS: ALANINE AMINOTRANSFERASE 54 U/L (12-78); ALBUMIN 2.1 g/dL (3.4-5.0); ANION GAP 7 mmol/L (5-15); CHLORIDE 105 mmol/L (98-107)
[2020-08-14 06:47] LABS: ALKALINE PHOSPHATASE 141 U/L (45-117); BILIRUBIN,TOTAL 0.5 mg/dL (0.2-1.0); TOTAL PROTEIN 7.2 g/dL (6.4-8.2)
[2020-08-14 07:30] VITALS: BP 99/66
[2020-08-14] MEDS ORDERED: SODIUM CHLORIDE 0.9% 1,000ML IVBOLUS ONE (07:30)
[2020-08-14] MEDS: IRON SUCROSE COMPLEX 100MG/5ML IV SCH (09:13)
[2020-08-14] MEDS: CHOLECALCIFEROL 5,000u TAB PO SCH (09:13)
[2020-08-14] MEDS: SENNA/DOCUSATE TABLET PO SCH (09:13)
[2020-08-14] MEDS: ASCORBIC ACID 500 MG TABLET PO SCH ×2 (09:13→16:23)
[2020-08-14] MEDS: ZINC SULFATE 220 MG CAPSULE PO SCH (09:14)
[2020-08-14] MEDS ORDERED: ENOXAPARIN 60 MG/0.6 ML SQ SCH (10:00)
[2020-08-14] MEDS: MICAFUNGIN 100 MG in SODIUM CHLORIDE 0.9% 100 ML IV SCH (12:19)
[2020-08-14 14:03] VITALS: BP 117/79
[2020-08-14 19:13] VITALS: BP 107/65
[2020-08-14] MEDS ORDERED: DIPHENHYDRAMINE 50 MG/ML, 1ML IVPush ONE (22:30)
[2020-08-14] MEDS ORDERED: methylPREDNISolone SOD SUCC 125 MG/2 ML IVPush ONE (22:30)
[2020-08-15 00:44] VITALS: BP 95/63
[2020-08-15 05:18] LABS: BASOPHILS % (AUTO) 1 % (0-1); EOSINOPHILS % (AUTO) 0 % (1-7); LYMPHOCYTES % (AUTO) 5 % (22-44); MEAN CORPUSCULAR HEMOGLOBIN 27.8 pg (27.5-34.5); MEAN CORPUSCULAR HGB CONC 32.1 g/dL (33.2-36.2); MEAN PLATELET VOLUME 8.2 fL (7.4-10.4); MONOCYTES % (AUTO) 1 % (2-9); NEUTROPHILS % (AUTO) 94 % (42-75); PLATELET COUNT 632 x10^3/uL (130-400); RED BLOOD COUNT 3.09 x10^6/uL (4.38-5.82); RED CELL DISTRIBUTION WIDTH 22.5 % (9.4-14.8)
[2020-08-15 05:30] LABS: ANION GAP 6 mmol/L (5-15); CALCIUM 8.7 mg/dL (8.5-10.1); CHLORIDE 109 mmol/L (98-107); CREATININE 0.83 mg/dL (0.7-1.3)
[2020-08-15 06:17] LABS: MD SCAN
[2020-08-15] MEDS: ASCORBIC ACID 500 MG TABLET PO SCH ×2 (08:15→16:28)
[2020-08-15] MEDS: ZINC SULFATE 220 MG CAPSULE PO SCH (08:15)
[2020-08-15] MEDS: SENNA/DOCUSATE TABLET PO SCH (08:15)
[2020-08-15] MEDS: CHOLECALCIFEROL 5,000u TAB PO SCH (08:15)
[2020-08-15] MEDS: DIPHENHYDRAMINE 50 MG/ML, 1ML IVPush SCH ×3 (08:15→20:10)
[2020-08-15 08:27] VITALS: BP 101/69
[2020-08-15] MEDS: ERTAPENEM 1 GM in SODIUM CHLORIDE 0.9% 50 ML IV SCH (10:56)
[2020-08-15] MEDS: MICAFUNGIN 100 MG in SODIUM CHLORIDE 0.9% 100 ML IV SCH (12:11)
[2020-08-15 12:47] VITALS: BP 111/75
[2020-08-15 22:28] VITALS: BP 103/60
[2020-08-16] MEDS: DIPHENHYDRAMINE 50 MG/ML, 1ML IVPush SCH ×4 (01:41→20:07)
[2020-08-16 01:44] VITALS: BP 102/66
[2020-08-16 07:09] VITALS: BP 107/69
[2020-08-16] MEDS: ASCORBIC ACID 500 MG TABLET PO SCH ×2 (09:14→16:54)
[2020-08-16] MEDS: CHOLECALCIFEROL 5,000u TAB PO SCH (09:15)
[2020-08-16] MEDS: ZINC SULFATE 220 MG CAPSULE PO SCH (09:15)
[2020-08-16] MEDS: SENNA/DOCUSATE TABLET PO SCH (09:15)
[2020-08-16] MEDS: ERTAPENEM 1 GM in SODIUM CHLORIDE 0.9% 50 ML IV SCH (10:19)
[2020-08-16] MEDS: MICAFUNGIN 100 MG in SODIUM CHLORIDE 0.9% 100 ML IV SCH (11:45)
[2020-08-16 13:20] VITALS: BP 114/78
[2020-08-16 19:17] VITALS: BP 118/81
[2020-08-16] MEDS: PANTOPRAZOLE 40MG TABLET PO SCH (20:07)
[2020-08-17 00:48] VITALS: BP 94/60
[2020-08-17] MEDS: DIPHENHYDRAMINE 50 MG/ML, 1ML IVPush SCH ×3 (01:42→14:29)
[2020-08-17 07:43] VITALS: BP 93/59
[2020-08-17] MEDS: SENNA/DOCUSATE TABLET PO SCH (10:22)
[2020-08-17] MEDS: CHOLECALCIFEROL 5,000u TAB PO SCH (10:22)
[2020-08-17] MEDS: ERTAPENEM 1 GM in SODIUM CHLORIDE 0.9% 50 ML IV SCH (10:22)
[2020-08-17] MEDS: ASCORBIC ACID 500 MG TABLET PO SCH (10:22)
[2020-08-17] MEDS: PANTOPRAZOLE 40MG TABLET PO SCH (10:22)
[2020-08-17] MEDS: ZINC SULFATE 220 MG CAPSULE PO SCH (10:22)
[2020-08-17] MEDS: MICAFUNGIN 100 MG in SODIUM CHLORIDE 0.9% 100 ML IV SCH (12:31)
[2020-08-17] MEDS ORDERED: FLUC200T4 PO (14:01)
[2020-08-17] MEDS ORDERED: PANT40TA6 PO (14:01)
[2020-08-17] MEDS ORDERED: ERTA1VIA IJ (14:02)
[2020-08-17 15:17] VITALS: BP 101/67
== END 2020-08-17 18:13 | disposition home or self-care (01) | DRG 314 ==
LOC: ED 22:17 → EDIP 23:34 → 4WST 08-04 00:22 → 3WST 08-09 17:08 → 5SO 08-11 17:58
PROVIDERS: ADMIT Internal Medicine; ATTEND Hospitalist
PROC: 30233N1 Transfusion of Nonautologous Red Blood Cells into Peripheral Vein, Percutaneous Approach (ICD-10-PCS; principal; 2020-08-05)
PROC: 02HV33Z Insertion of Infusion Device into Superior Vena Cava, Percutaneous Approach (ICD-10-PCS; 2020-08-10)
PROC: B5181ZA Fluoroscopy of Superior Vena Cava using Low Osmolar Contrast, Guidance (ICD-10-PCS; 2020-08-10)
DX: T80.211A Bloodstream infection due to central venous catheter, initial encounter (principal); J15.211 Pneumonia due to Methicillin susceptible Staphylococcus aureus; J96.01 Acute respiratory failure with hypoxia; N17.0 Acute kidney failure with tubular necrosis; R65.21 Severe sepsis with septic shock; A41.01 Sepsis due to Methicillin susceptible Staphylococcus aureus; B17.9 Acute viral hepatitis, unspecified; E87.2 Acidosis; K92.0 Hematemesis; E87.1 Hypo-osmolality and hyponatremia; D64.9 Anemia, unspecified; E86.0 Dehydration; E88.09 Other disorders of plasma-protein metabolism, not elsewhere classified; F19.10 Other psychoactive substance abuse, uncomplicated; F32.9 Major depressive disorder, single episode, unspecified; R74.8 Abnormal levels of other serum enzymes; K31.89 Other diseases of stomach and duodenum; L27.0 Generalized skin eruption due to drugs and medicaments taken internally; L29.9 Pruritus, unspecified; Y83.8 Other surgical procedures as the cause of abnormal reaction of the patient, or of later complication, without mention of misadventure at the time of the procedure; T36.1X5A Adverse effect of cephalosporins and other beta-lactam antibiotics, initial encounter; Z87.891 Personal history of nicotine dependence; Z88.1 Allergy status to other antibiotic agents; Z98.1 Arthrodesis status; Y92.89 Other specified places as the place of occurrence of the external cause; Z79.899 Other long term (current) drug therapy
CPT/HCPCS: 36415; 36573; 36600; 71045; 71260; 71275; 72126; 76700; 76937; 80048; 80053; 80061; 80074; 80202; 80299; 81003; 82272; 82550; 82607; 82728; 82803; 82962; 83540; 83550; 83605; 83615; 83735; 84100; 84145; 84443; 85014; 85018; 85025; 85049; 85379; 85384; 85520; 85610; 85651; 85730; 86140; 86592; 86790; 86850; 86900; 86923; 87040; 87070; 87077; 87081; 87106; 87147; 87186; 87205; 87400; 87806; 87880; 93005; 93306; 93312; 93321; 93325; 96374; 99291; G0378; J0690; J0696; J1100; J1335; J1644; J1650; J1756; J2248; J2704; J3370; J7060; Q9967; C1751; C1769; C9113; G0475; J1200; J2930; J7030; J7040; J7050; P9016; Q0163; Q0177; U0003